=== PATIENT | female | born 1995 | race Caucasian/White ===

== ENCOUNTER 2017-08-18 16:49 | Emergency (ER) | payer BC ==
[~2017-08-18] VITALS: Ht 160 cm; Wt 89.5 kg
[~2017-08-18 16:49] MED LIST changes: -XANAX 0.5MG0.5 MG PO
[2017-08-18 18:17] VITALS: TEMP 98
[2017-08-18] MEDS ORDERED: XANAX 0.5MG0.5 MG PO (18:20)
[2017-08-18 19:55] VITALS: BP 124/81; PULSE 91
== END 2017-08-18 19:55 | disposition home or self-care (01) ==
LOC: COL.ER 16:49
DX: R10.31 Right lower quadrant pain (principal); F41.9 Anxiety disorder, unspecified; Z98.890 Other specified postprocedural states
CPT/HCPCS: J0696

== ENCOUNTER → 2017-08-18 | Outpatient (CLI) | payer BC ==
[~2017-08-18] MED LIST: AVIANE 0.02 MG-1 TAB PO; BIRTH CONTROL TP; LEXAPRO20 MG PO; MOTRIN 600600 MG/TAB PO; NORCO 325 MG-51 TAB PO; PERCOCET 325 MG1 TA2 PO; PRENATAL1 TA1 PO; XANAX 0.5MG0.5 MG PO
== END ==
LOC: COL.RAD 17:05
DX: N20.0 Calculus of kidney (principal)
CPT/HCPCS: J7050; Q9967

== ENCOUNTER → 2017-08-26 | Outpatient (CLI) | payer BC ==
[~2017-08-26] MED LIST changes: +XANAX 0.5MG0.5 MG PO
== END ==
LOC: COL.RAD 09:33
DX: R10.11 Right upper quadrant pain (principal); R11.2 Nausea with vomiting, unspecified

== ENCOUNTER → 2023-02-26 | Outpatient (CLI) | payer BC | LOC: COL.RAD 10:42 | DX: L68.0 Hirsutism (principal); Q43.8 Other specified congenital malformations of intestine; R19.04 Left lower quadrant abdominal swelling, mass and lump | CPT/HCPCS: Q9967 ==